=== PATIENT | male | born 1970 | race Caucasian/White ===

== ENCOUNTER 2017-06-25 18:31 | Observation (INO) | payer OTHER ==
[~2017-06-25] VITALS: Ht 182.9 cm; Wt 153.3 kg
[~2017-06-25 18:31] MED LIST: ATORVASTATIN CA40 MG PO; BACLOFEN 10MG T10 MG PO; CELEXA 20 MG TA20 M1; CELEXA 20 MG TA20 M1 PO; CELEXA 20 MG TA20 MG PO; CELEXA20 MG PO; CENTRUM SILVER1 EAC2 PO; FISH OIL 1,001000 M2 PO; FLEXERIL PO; GABAPENTIN800 M1 PO; HYDROCHLOROTHIA25 M2 PO; IBUPROFEN 200200 M1 PO; KEFLEX500 MG PO; KLOR-CON 1010 MEQ PO; LASIX 40 MG TAB40 M2 PO; LEXAPRO 10 MG T10 MG PO; LIDODERM 5%1 PATC1 TRANSDERM; LIORESAL 10 MG10 MG PO; LIPITOR 40 MG T40 M1 PO; LIPITOR20 MG PO; LISINOPRIL10 MG PO; NICOTINE TRANSD21 M1 TRANSDERM; NOHOMEMEDICATIONS; NORCO 5-325 TA1 EACH PO; PLAVIX 75 MG TA75 M1 PO; PLAVIX 75 MG TA75 MG PO; PRINIVIL5 MG PO; SILVADENE20 GM TP; TRAZODONE HCL50 MG PO; TYLENOL EX-STR500 M2 PO; WELLBUTRIN XL150 MG PO; ZESTORETIC 10-1 EACH PO
[2017-06-25 18:32] VITALS: BP 125/87
[2017-06-25] MEDS ORDERED: LOPRESSOR25 PO (18:42)
[2017-06-25] MEDS ORDERED: ATIVAN0.5 MG PO (18:43)
[2017-06-25] MEDS ORDERED: NORVASC5 MG PO (18:43)
[2017-06-25] MEDS ORDERED: ZOLOFT100 MG PO (18:44)
[2017-06-25] MEDS ORDERED: RESTORIL15 M1 PO (18:45)
[2017-06-25 18:48] LABS: ABSOLUTE BASOPHILS 0.1 thou/uL (0.0-0.2); ABSOLUTE EOSINOPHILS 0.3 thou/uL (0.0-0.7); ABSOLUTE LYMPHOCYTES 2.9 thou/uL (0.8-5.3); ABSOLUTE MONOCYTES 0.5 thou/uL (0.0-1.2); ABSOLUTE NEUTROPHILS 9.3 thou/uL (1.6-8.1); BASOPHILS 0.4 %; EOSINOPHILS 1.9 %; HEMATOCRIT 47.3 % (42.0-52.0); LYMPHOCYTES 22.1 %; MCHC 33.8 g/dL (28.0-37.0); MCV 85.7 fL (80.0-100.0); MONOCYTES 4.2 %; MPV 9.2 fl. (7.2-11.1); NUCLEATED RBCS 0 /100WBC; PLATELET COUNT* 310 thou/uL (150-400); POLYS 71.4 %; RBC 5.52 mil/uL (4.50-6.00); RDW-CV 14.1 % (10.5-14.5)
[2017-06-25 18:55] LABS: ANION GAP 10 mmol/L (7-16); BUN 14 mg/dL (7-18); CALCIUM 8.9 mg/dL (8.5-10.1); CHLORIDE 99 mmol/L (98-107); CO2 29 mmol/L (21-32); CREATININE 1.1 mg/dL (0.6-1.3); GLUCOSE 168 mg/dL (70-99); POTASSIUM 3.3 mmol/L (3.5-5.1); SODIUM 138 mmol/L (136-145)
[2017-06-25 19:12] LABS: ALBUMIN 3.8 g/dL (3.4-5.0); ALKALINE PHOSPHATASE 123 U/L (46-116); LIPASE 90 U/L (73-393); MAGNESIUM 1.9 mg/dL (1.8-2.4); NT-PRO BRAIN NAT PEPTIDE 35 pg/mL (<300); SGOT 24 U/L (15-37); SGPT 46 U/L (30-65); TOTAL BILIRUBIN 0.4 mg/dL (<0.1-1.0); TOTAL PROTEIN 7.8 g/dL (6.4-8.2); TROPONIN-I LEVEL <0.06 ng/mL (<0.06)
[2017-06-25 20:47] LABS: URINE BILIRUBIN NEGATIVE (Negative); URINE BLOOD NEGATIVE (Negative); URINE CLARITY CLEAR; URINE COLOR YELLOW; URINE GLUCOSE-RANDOM NEGATIVE (Negative); URINE KETONES NEGATIVE (Negative); URINE LEUKOCYTES-REFLEX NEGATIVE (Negative); URINE NITRITE-REFLEX NEGATIVE (Negative); URINE PROTEIN NEGATIVE (Negative); URINE SPECIFIC GRAVITY <= 1.005 (1.005-1.030); URINE UROBILINOGEN 0.2 E.U./dl (0.2-1.0)
[2017-06-25 20:53] LABS: AMP/METHAMP Negative (Negative); BARBITURATES Negative (Negative); BENZODIAZEPINES Negative (Negative); COCAINE Negative (Negative); METHADONE Negative (Negative); OPIATES Negative (Negative); PCP Negative (Negative); THC Negative (Negative)
[2017-06-25 21:25] VITALS: BP 127/79
[2017-06-25 21:44] VITALS: BP 123/95
[2017-06-26] VITALS: BP 127/79
--- NOTE | 2017-06-26 00:46 | NUR ---
ASSUMED CARE OF PT FROM ER AT 2134. PT IS ALERT AND ORIENTED. VSS. PERRLA. NO COMPLAINTS OF PAIN. PT DENIES CHEST PAIN AT THIS TIME. PT WAS NOTED TO HAVE A HEART MURMER. PT IS IN SINUS RYTHM ON THE TELEMETRY. PT IS RESTING COMFORTABLY IN BED. RESPIRATIONS ARE EEVEN AND NONLABORED. WILL CONTINUE TO MONITOR PT.
[2017-06-26 04:00] VITALS: BP 120/71
[2017-06-26 08:00] VITALS: BP 104/70
[2017-06-26 10:16] LABS: CHOLESTEROL 153 mg/dL (<200); HDL CHOLESTEROL 37 mg/dL (>40); LDL CHOLESTEROL 87 mg/dL (<100); TC:HDL 4.1 Ratio (Not establshd); TRIGLYCERIDE 147 mg/dL (<150); VLDL 29 mg/dL (<40)
[2017-06-26 10:17] LABS: SERUM ASSESSMENT Clear
[2017-06-26 11:21] VITALS: BP 112/76
--- NOTE | 2017-06-26 11:47 | NUR ---
CM SPOKE TO THE PATIENT TO DISCUSS HOME SITUATION, DISCHARGE PLANNNING, AND TO INFORM OF THE ROLE OF CM. PATIENT ALERT, ORIENTED, AND INDEPENDENT WITH ADL'S. PATIENT RESIDES AT HOME WITH SPOUSE. PATIENT USES A WHEELCHAIR AND WALKER FOR MOBILITY, AND ALSO USES A CPAP AT NIGHT. PATIENT INFORMS CM THAT HIS WILL BRING THE CPAP TO THE HOSPITAL TODAY FOR HIM TO USE. PATIENT HAS NO HX OF HH OR SNF AND PLANS TO RETURN HOME AT D/C. CM WILL REMAIN AVAILABLE TO ASSIST AND FOLLOW NEEDED.
[2017-06-26 15:46] VITALS: BP 118/69
--- NOTE | 2017-06-26 16:06 | 2DMMODE ---
[place] [address] 2 D/M-MODE ECHOCARDIOGRAM Name: CHLOÉ FINNEGAN Room: [address] ADM IN [facility]#: [id number] Admission: 06/25/17 Attend Phys: Rosa Javier Discharge: Date of : 74 Date of Service: 06/26/17 1605 Report #: [id number] THIS REPORT FOR: //name// APPROVED REPORT Study performed: 06/26/2017 10:16:16 EXAM: Comprehensive 2D, Doppler, and color-flow Echocardiogram Patient Location: In-Patient Room #: [facility] Status: routine BSA: 2.66 HR: 86 bpm BP: 104/70 mmHg Rhythm: NSR Other Information Technically limited study due to body habitus. Indications Murmur Chest Pain Echo Enhancing Agent Indication: Endocardial border delineation Agent(s) / Amount(s) Used: Optison 3 cc 2D Dimensions LVEF(%): 76.63 (>50%) IVSd: 13.53 (7-11mm) LVOT Diam: 19.32 (18-24mm) LVDd: 35.41 mm PWd: 13.03 (7-11mm) Ascending Ao: 29.44 (22-36mm) LVDs: 19.69 (25-40mm) Aortic Root: 30.64 mm Hicks's LVEF: 76.63 % Volumes Left Atrial Volume (Systole) LA ESV Index: 16.50 mL/m2 Aortic Valve AoV Peak Alo.: 4.08 m/s AO Peak Gr.: 66.66 mmHg LVOT Max P.61 mmHg AO Mean Gr.: 40.56 mmHg LVOT Mean P.71 [place] [address] 2 D/M-MODE ECHOCARDIOGRAM Name: CHLOÉ FINNEGAN Room: [address] IN .R.#: [id number] Admission: 06/25/17 Attend Phys: Rosa Javier Discharge: Date of : 74 Date of Service: 06/26/17 1605 Report #: [id number] LVOT Max V: 1.07 m/s AO V2 VTI: 78.98 cm LVOT Mean V: 0.77 m/s CROW (VTI): 0.82 cm2 LVOT V1 VTI: 22.00 cm Mitral Valve E/A Ratio: 0.91 MV Decel. Time: 261.06 ms MV E Max Alo.: 1.05 m/s MV PHT: 75.71 ms MVA (PHT): 2.91 cm2 TDI E/Lateral E': 8.08 E/Medial E': 13.13 Medial E' Alo.: 0.08 m/s Lateral E' Alo.: 0.13 m/s Pulmonary Valve PV Peak Alo.: 1.73 m/s PV Peak Gr.: 11.96 mmHg Left Ventricle The left ventricle is normal size. There is normal LV segmental wall motion. Mild concentric left ventricular hypertrophy. Left ventricular systolic function is normal. The left ventricular ejection fraction is within the normal range. LVEF is 60-65%. Grade I - abnormal relaxation pattern. Right Ventricle The right ventricle is normal size. The right ventricular systolic function is normal. Atria The left atrium size is normal. The right atrium size is normal. Aortic Valve Moderate aortic valve sclerosis. No aortic regurgitation is present. Severe aortic stenosis. Mitral Valve The mitral valve is normal in structure. There is no mitral valve regurgitation noted. No evidence of mitral valve stenosis. Tricuspid Valve The tricuspid valve is normal in structure. Unable to assess PA pressure. Trace [place] [address] 2 D/M-MODE ECHOCARDIOGRAM Name: CHLOÉ FINNEGAN Room: [address] IN [facility]#: [id number] Admission: 06/25/17 Attend Phys: Rosa Javier Discharge: Date of : 74 Date of Service: 06/26/17 1605 Report #: [id number] Pulmonic Valve The pulmonary valve is normal in structure. There is no pulmonic valvular regurgitation. Great Vessels The aortic root is normal in size. IVC is normal in size and collapses with >50% inspiration Pericardium There is no pericardial effusion. <Conclusion> LVEF is 60-65%. Grade I - abnormal relaxation pattern. Moderate aortic valve sclerosis. Severe aortic stenosis. There is no mitral valve regurgitation noted. Unable to assess PA pressure. Trace tricuspid regurgitation. There is no pulmonic valvular regurgitation. <ELECTRONICALLY SIGNED> By: Mark Harding MD, FACC 06/26/17 1605 1605 1605 Mark Harding MD, FACC /INF
--- NOTE | 2017-06-26 16:28 | EKG ---
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 : 1970 Requested By: Johny Llamas Order Number: [id number] MD: Chaitanya Grant Measurements Intervals [place] Rate: 104 P: 52 AK: 170 QRS: -21 QRSD: 111 T: 14 QT: 370 QTc: 487 Interpretive Statements Sinus tachycardia Probable left atrial enlargement Borderline left axis deviation Low voltage, extremity leads ST elev, probable normal early repol pattern Borderline prolonged QT interval Baseline wander in lead(s) I,III,aVL Compared to ECG 08/23/2016 13:35:57 Low QRS voltage now present ST (T wave) deviation now present Myocardial infarct finding no longer present Electronically Signed On 06-26-2017 16:28:33 CDT by Chaitanya Grant [email or web address] <ELECTRONICALLY SIGNED> By: Chaitanya Grant MD, [facility] 06/26/17 1628 1834 183 Chaitanya Grant MD, [facility] /EPI
--- NOTE | 2017-06-26 17:11 | CARDNUC ---
[place] [address] CARDIAC NUCLEAR IMAGING REPORT Name: CHLOÉ FINNEGAN Room: [address] IN [facility]#: [id number] Admission: 06/25/17 Attend Phys: Rosa Javier Discharge: Date of : 74 Date of Service: 06/26/17 1711 Report #: [id number] THIS REPORT FOR: //name// APPROVED REPORT Study performed: 06/25/2017 23:02:00 Exam: Nuclear Stress Test Indication: Chest pain Patient Location: In-Patient Room #: 206 Stress Tech: Nany Ayala Stress Nurse: Chayito Vences RN Ht: 6 ft 0 in Wt: 338 lbs BSA: 2.66 m2 BMI: 45.83 Medical History Medical History: Stroke/TIA Medications: plavix, metoprolol, amlodipine, atorvastatin Allergies: lisinopril, asa Cardiac Risk Factors: Age, Hyperlipidemia, , HTN, FHX of CAD Exercise History: Sedentary Meds Held (24 hrs): metoprolol, amlodipine Stress Test Details Stress Test: Pharmacologic stress testing performed using 0.4 mg of regadenoson per 5 mL given IV over 10 seconds. Reason for pharmacologic stress test: physical limitation. HR Resting HR: 86 bpm Max Heart Rate (APMHR): 175 bpm Max HR Achieved: 115 bpm Target HR (85% APMHR): 148 bpm % of APMHR: 65 Recovery HR: 96 bpm HR response to stress: Normal HR response to stress BP Resting BP: 105/79 mmHg Max BP: 114/84 mmHg BP response to stress: Normal blood pressure response to stress. ECG Resting ECG: Sinus Rhythm, [place] [address] CARDIAC NUCLEAR IMAGING REPORT Name: CHLOÉ FINNEGAN Room: [address] IN [facility]#: [id number] Admission: 06/25/17 Attend Phys: Rosa Javier Discharge: Date of : 74 Date of Service: 06/26/17 1711 Report #: [id number] Stress ECG: Sinus Rhythm ST Change: Nondiagnostic resting ST abnormalities Recovery ECG: Sinus Rhythm Recovery ST Change: None Clinical Reason for Termination: Completed protocol Stress Symptoms: None Exercise duration: 0 min sec Exercise capacity: 1.0 METs Stress ECG Conclusion equivocal for ischemia NM EXAM: Myocardial Perfusion REST/STRESS Imaging Protocol: Stress Tc-99m/Rest Tc-99m 2 days Pharmacologic Stress Pharmacologic stress test was performed by injecting Regadenoson 0.4 mg IV push followed by the intravenous injection of 37.9 mCi of Tc-99m Sestamibi. Time of stress injection: 1330 Date: 06/26/2017 Time of stress imagin Date: 06/26/2017 Administration Route: IV Administration Site: Left AC Heart Rate at time of stress injection: 115 bpm. Gated Stress SPECT was performed 40 minutes after stress injection. The images were gated to evaluate regional wall motion and calculate left ventricular ejection fraction. Prone imaging was performed. Study Quality Study: Good Artifact: Mild Increased GI uptake Lung Uptake: Normal Study Data Post stress, the left ventricular ejection was 69%.. Perfusion Normal perfusion on the stress images[place] [address] CARDIAC NUCLEAR IMAGING REPORT Name: CHLOÉ FINNEGAN Room: [address] IN ..#: [id number] Admission: 06/25/17 Attend Phys: Rosa Javier Discharge: Date of : 74 Date of Service: 06/26/171710 Report #: [id number] Nuclear Conclusion ECG Findings: positive for ischemia Clinical Findings: negative for ischemia Nuclear Findings: negative for ischemia Exercise Capacity: not assessed Left Ventricular Function: normal Risk Study: low Negative stress only nuclear stress test <Conclusion> equivocal for ischemia <ELECTRONICALLY SIGNED> By: Enoch Torres MD, [facility] 06/26/171710 10 10 Enoch Torres MD, FACC /INF
[2017-06-26 17:32] VITALS: BP 118/69
[2017-06-27 02:11] LABS: GLYCOHEMOGLOBIN (HGB A1C) 5.3 % (4.8-5.6)
== END 2017-06-26 18:15 | disposition home or self-care (01) ==
LOC: M.ERS 18:31 → M.2W 18:56 → M.TBA-ER 18:56 → M.2W 18:56
PROVIDERS: Emergency Medicine Emergency Medical Services; Personal Emergency Response Attendant; ADMIT Internal Medicine
DX: R07.9 Chest pain, unspecified (principal); I63.9 Cerebral infarction, unspecified; I10 Essential (primary) hypertension; E78.5 Hyperlipidemia, unspecified; Z87.891 Personal history of nicotine dependence

== ENCOUNTER 2017-07-11 10:35 | Outpatient (CLI) | payer OTHER ==
[~2017-07-11] VITALS: Ht 182.9 cm; Wt 154.2 kg
[~2017-07-11 10:35] MED LIST changes: +ATIVAN0.5 MG PO; +LOPRESSOR25 PO; +NORVASC5 MG PO; +RESTORIL15 M1 PO; +ZOLOFT100 MG PO
[2017-07-11 11:17] LABS: HEMATOCRIT 51.4 % (42.0-52.0); HEMOGLOBIN 17.3 gm/dL (14.0-18.0); MCHC 33.6 g/dL (28.0-37.0); MCV 86.1 fL (80.0-100.0); MPV 9.3 fl. (7.2-11.1); RBC 5.97 mil/uL (4.50-6.00); RDW-CV 14.1 % (10.5-14.5); WBC 12.3 thou/uL (4.0-11.0)
[2017-07-11 11:22] VITALS: BP 116/79
[2017-07-11 11:28] LABS: ANION GAP 8 mmol/L (7-16); BUN 12 mg/dL (7-18); CALCIUM 9.6 mg/dL (8.5-10.1); CHLORIDE 100 mmol/L (98-107); CO2 31 mmol/L (21-32); CREATININE 1.1 mg/dL (0.6-1.3); GLUCOSE 93 mg/dL (70-99); POTASSIUM 4.1 mmol/L (3.5-5.1); SODIUM 139 mmol/L (136-145)
[2017-07-11 11:29] LABS: APTT 30.8 Seconds (25.0-31.3); PROTIME 10.1 Seconds (9.20-11.50)
[2017-07-11 11:33] LABS: ALBUMIN 4.4 g/dL (3.4-5.0); ALKALINE PHOSPHATASE 136 U/L (46-116); CHOLESTEROL 167 mg/dL (<200); HDL CHOLESTEROL 39 mg/dL (>40); LDL CHOLESTEROL 94 mg/dL (<100); SGOT 28 U/L (15-37); SGPT 55 U/L (30-65); TC:HDL 4.3 Ratio (Not establshd); TOTAL BILIRUBIN 0.6 mg/dL (<0.1-1.0); TOTAL PROTEIN 8.8 g/dL (6.4-8.2); TRIGLYCERIDE 171 mg/dL (<150); VLDL 34 mg/dL (<40)
[2017-07-11 11:34] LABS: SERUM ASSESSMENT Clear
[2017-07-11 14:48] VITALS: BP 120/86
[2017-07-11 15:20] VITALS: BP 125/77
--- NOTE | 2017-07-11 15:21 | EKG ---
[place] [address] ELECTROCARDIOGRAM REPORT Name: CHLOÉ FINNEGAN Room: [address]#: [id number] Admission: 07/11/17 Attend Phys: Enoch Torres MD, Discharge: Date of : 74 Report #: [id number] THIS REPORT FOR: //name// [facility] Test Date: 2017-07-11 Test Time: 11:17:30 Pat Name: CHLOÉ FINNEGAN Department: Room: Gender: Potato Peeler: [facility] : 1970 Requested By: Enoch Torres Order Number: [id number] MD: Enoch Torres Measurements Intervals [place] Rate: 74 P: 18 DC: 219 QRS: -7 QRSD: 89 T: 43 QT: 389 QTc: 432 Interpretive Statements Sinus rhythm Prolonged DC interval Probable left atrial enlargement Compared to ECG 06/25/2017 18:34:24 First degree AV block now present Sinus tachycardia no longer present ST (T wave) deviation no longer present Electronically Signed On 07-11-2017 15:20:51 CDT by Enoch Torres [email or web address] <ELECTRONICALLY SIGNED> By: Enoch Torres MD, FACC 07/11/17 1520 1117 1117 nEoch Torres MD, [facility] /EPI
--- NOTE | 2017-07-11 15:35 | CARD ---
[address] [address] CARDIAC CATH REPORT Name: CHLOÉ FINNEGAN Room: [address] [place]#: [id number] Admission: 07/11/17 Attend Phys: Enoch Torres MD, Discharge: Date of : 74 Report #: [id number] THIS REPORT FOR: //name// APPROVED REPORT Study performed: 07/11/2017 12:59:52 Patient Details Patient Status: Out-Patient Room #: The patient is a 47 year-old male Event Personnel Enoch Torres Supply Coordinator, Ruthie Arcos RN Ground Support Equipment Fitter, Carmine Mcleod (R) Monitor, Shirlene Cunha Scrub Procedures Performed Coronary Angiography Only, Supravalvular Aortography Injection Indication Dyspnea, Aortic stenosis Risk Factors Hypercholesterolemia, Hypertension Procedure Narrative The patient was brought electively to the Cardiac Catheterization Laboratory and was prepped and draped in a sterile manner. The right femoral was infiltrated with 1% Lidocaine subcutaneous anesthesia. A [place] 6 FR sheath was inserted into the Right Femoral Artery. Coronary angiography was performed using coronary diagnostic catheters. The right coronary system was accessed and visualized with a Diagnostic 3DRC 6fr catheter. The left coronary system was accessed and visualized with a Diagnostic JL 4 catheter. An aortogram of the ascending aorta was performed. Pre-demployment femoral angiogram was performed . Closure device was deployed with a Fr MynxGrip 6/7F. The patient tolerated the procedure well and there were no complications associated with the procedure. There was no hematoma. Intraoperative Conscious Sedation Fentanyl mcg Dose: 1676 mGy Contrast Type and Amount: Visipaque 135 [place] [address] CARDIAC CATH REPORT Name: CHLOÉ FINNEGAN [id number] Admission: 07/11/17 Attend Phys: Enoch Torres MD, Discharge: Date of : 74 Report #: [id number] Coronary Angiography The patient's coronary anatomy is co- dominant. Diagnostic Cath Left Main 0% narrowing LAD 20% mid LAD narrowing Circumflex Codominant vessel with 0% narrowing Right Coronary Codominant vessel with 30% mid vessel narrowing Left Ventriculography Left Ventriculography was not performed. Ascending aortography demonstrated trace of aortic insufficiency calcified aortic valve with reduced mobility and no significant dilatation of the aortic root Hemodynamics The aortic pressure is 112/75 mmHg with a mean of 93 mmHg. Conclusion #1 mild coronary artery disease characterized by the following: A 20% mid LAD narrowing B 30% narrowing of the midportion of the codominant right coronary artery C normal left main and codominant circumflex coronary arteries #2 normal systemic pressure #3 trace of aortic insufficiency on ascending aortography with a calcified aortic valve with reduced mobility; there is no significant dilatation of the aortic root Recommendations Aggressive Medical Therapy Diagnostic Cath Approved by: Enoch Torres MD Date/Time: 07/11/17 at 1534 hrs. <ELECTRONICALLY SIGNED> By: Enoch Torres MD, [facility] 07/11/17 1534 1534 1534Enoch Torres MD, [facility] /INF
[2017-07-11 15:52] VITALS: BP 97/67
[2017-07-11 16:25] VITALS: BP 122/74
[2017-07-11 17:49] VITALS: BP 110/73
== END 2017-07-11 15:34 | disposition home or self-care (01) ==
LOC: M.CL 10:35 → M.TBA-CV 10:35 → M.CL 12:00 → M.TBA-CV 14:33 → M.CL 14:33
PROVIDERS: Internal Medicine
DX: I25.10 Atherosclerotic heart disease of native coronary artery without angina pectoris (principal); I10 Essential (primary) hypertension; E78.00 Pure hypercholesterolemia, unspecified; I35.0 Nonrheumatic aortic (valve) stenosis; G47.33 Obstructive sleep apnea (adult) (pediatric); Z86.73 Personal history of transient ischemic attack (TIA), and cerebral infarction without residual deficits; Z88.8 Allergy status to other drugs, medicaments and biological substances; Z79.899 Other long term (current) drug therapy; Z98.890 Other specified postprocedural states; Z79.01 Long term (current) use of anticoagulants

== ENCOUNTER 2017-10-19 00:10 | Emergency (ER) | payer OTHER ==
[~2017-10-19] VITALS: Ht 182.9 cm; Wt 106.6 kg
[2017-10-19 01:00] LABS: ABSOLUTE BASOPHILS 0.1 thou/uL (0.0-0.2); ABSOLUTE EOSINOPHILS 0.2 thou/uL (0.0-0.7); ABSOLUTE LYMPHOCYTES 3.7 thou/uL (0.8-5.3); ABSOLUTE MONOCYTES 0.9 thou/uL (0.0-1.2); ABSOLUTE NEUTROPHILS 8.4 thou/uL (1.6-8.1); BASOPHILS 0.6 %; EOSINOPHILS 1.7 %; HEMATOCRIT 45.8 % (42.0-52.0); HEMOGLOBIN 15.3 gm/dL (14.0-18.0); LYMPHOCYTES 27.7 %; MCH 27.8 pg (26.0-34.0); MCHC 33.4 g/dL (28.0-37.0); MCV 83.1 fL (80.0-100.0); MONOCYTES 6.5 %; MPV 8.4 fl. (7.2-11.1); NUCLEATED RBCS 0 /100WBC; PLATELET COUNT* 384 thou/uL (150-400); POLYS 63.5 %; RBC 5.52 mil/uL (4.50-6.00); WBC 13.2 thou/uL (4.0-11.0)
[2017-10-19 01:12] LABS: APTT 29.4 Seconds (25.0-31.3); INR 1.1; PROTIME 10.3 Seconds (9.20-11.50)
[2017-10-19 01:30] LABS: ANION GAP 9 mmol/L (7-16); BUN 15 mg/dL (7-18); CALCIUM 8.9 mg/dL (8.5-10.1); CHLORIDE 101 mmol/L (98-107); CO2 28 mmol/L (21-32); GLUCOSE 108 mg/dL (70-99); POTASSIUM 3.9 mmol/L (3.5-5.1); SODIUM 138 mmol/L (136-145)
[2017-10-19 01:37] LABS: ALBUMIN 3.4 g/dL (3.4-5.0); ALKALINE PHOSPHATASE 113 U/L (46-116); LIPASE 109 U/L (73-393); SGOT 16 U/L (15-37); SGPT 29 U/L (30-65); TOTAL BILIRUBIN 0.4 mg/dL (<0.1-1.0); TOTAL PROTEIN 7.6 g/dL (6.4-8.2); TROPONIN-I LEVEL <0.06 ng/mL (<0.06)
[2017-10-19] MEDS ORDERED: PREVACID15 MG PO (03:23)
[2017-10-19] MEDS ORDERED: CARAFATE 1 GM TA1 GM PO (03:23)
[2017-10-19 03:32] VITALS: BP 131/77
--- NOTE | 2017-10-19 11:12 | EKG ---
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 : 1970 Requested By: Ana Luisa Woodall Order Number: [id number] MD: Cristopher Covarrubias Measurements Intervals [place] Rate: 94 P: 79 MN: 198 QRS: -2 QRSD: 104 T: 59 QT: 375 QTc: 469 Interpretive Statements Sinus rhythm Borderline prolonged MN interval Biatrial enlargement septal infarct, age indeterminate RSR' in V1 Compared to ECG 07/11/2017 11:17:30 no change Electronically Signed On 10-19-2017 11:12:25 CDT by Cristopher Covarrubias [email or web address] <ELECTRONICALLY SIGNED> By: Cristopher Covarrubias MD, [facility] 10/19/17 1112 0015 0015 Cristopher Covarrubias MD, [facility] /EPI
== END 2017-10-19 03:33 | disposition home or self-care (01) ==
LOC: M.ERS 00:10
PROVIDERS: Personal Emergency Response Attendant
DX: K21.9 Gastro-esophageal reflux disease without esophagitis (principal); Z88.6 Allergy status to analgesic agent; Z88.8 Allergy status to other drugs, medicaments and biological substances; I10 Essential (primary) hypertension; G47.33 Obstructive sleep apnea (adult) (pediatric)

== ENCOUNTER 2018-03-02 09:32 | Emergency (ER) | payer OTHER ==
[~2018-03-02] VITALS: Ht 182.9 cm; Wt 163.3 kg
[~2018-03-02 09:32] MED LIST changes: +CARAFATE 1 GM TA1 GM PO; +PREVACID15 MG PO
[2018-03-02 10:05] LABS: ABSOLUTE BASOPHILS 0.1 thou/uL (0.0-0.2); ABSOLUTE EOSINOPHILS 0.2 thou/uL (0.0-0.7); ABSOLUTE LYMPHOCYTES 1.5 thou/uL (0.8-5.3); ABSOLUTE MONOCYTES 0.4 thou/uL (0.0-1.2); ABSOLUTE NEUTROPHILS 7.1 thou/uL (1.6-8.1); BASOPHILS 1.1 %; EOSINOPHILS 2.6 %; HEMATOCRIT 47.6 % (42.0-52.0); HEMOGLOBIN 16.1 gm/dL (14.0-18.0); LYMPHOCYTES 15.9 %; MCH 29.9 pg (26.0-34.0); MCHC 33.8 g/dL (28.0-37.0); MCV 88.6 fL (80.0-100.0); MONOCYTES 4.5 %; MPV 8.6 fl. (7.2-11.1); NUCLEATED RBCS 0 /100WBC; PLATELET COUNT* 284 thou/uL (150-400); POLYS 75.9 %; RBC 5.37 mil/uL (4.50-6.00); WBC 9.4 thou/uL (4.0-11.0)
[2018-03-02 10:17] LABS: ANION GAP 11 mmol/L (7-16); APTT 27.8 Seconds (25.0-31.3); BUN 10 mg/dL (7-18); CALCIUM 8.7 mg/dL (8.5-10.1); CHLORIDE 102 mmol/L (98-107); CO2 27 mmol/L (21-32); GLUCOSE 168 mg/dL (70-99); SODIUM 140 mmol/L (136-145)
[2018-03-02 10:36] LABS: ALBUMIN 3.4 g/dL (3.4-5.0); ALKALINE PHOSPHATASE 113 U/L (46-116); LIPASE 110 U/L (73-393); MAGNESIUM 1.9 mg/dL (1.8-2.4); NT-PRO BRAIN NAT PEPTIDE 51 pg/mL (<300); SGOT 34 U/L (15-37); SGPT 49 U/L (30-65); TOTAL BILIRUBIN 0.2 mg/dL (<0.1-1.0); TOTAL PROTEIN 7.6 g/dL (6.4-8.2); TROPONIN-I LEVEL <0.06 ng/mL (<0.06)
[2018-03-02 11:06] VITALS: BP 111/69
--- NOTE | 2018-03-03 11:17 | EKG ---
[place] [address] ELECTROCARDIOGRAM REPORT Name: CHLOÉ FINNEGAN Room: [facility]#: [id number] Admission: 03/02/18 Attend Phys: Discharge: 03/02/18 Date of : 74 Report #: [id number] THIS REPORT FOR: //name// 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: Joanie BARBER : 1970 Requested By: Marcus Moreira Order Number: [id number] MD: Enoch Torres Measurements Intervals [place] Rate: 82 P: 77 MS: 200 QRS: -8 QRSD: 121 T: 50 QT: 389 QTc: 455 Interpretive Statements Sinus rhythm Probable left atrial enlargement Nonspecific intraventricular conduction delay Possible anteroseptal infarct, old Minimal ST elevation, lateral leads Artifact in lead(s) I,III,aVR,aVL,aVF,V2 Compared to ECG 10/19/2017 00:15:01 Intraventricular conduction delay now present ST (T wave) deviation now present Myocardial infarct finding still present Electronically Signed On 03-03-2018 11:17:46 ELECTRICAL SYSTEMS DESIGN ENGINEER by Enoch Torres [email or web address] <ELECTRONICALLY SIGNED> By: Enoch Torres MD, [facility] 03/03/18 1117 Enoch Torres MD, [facility] /EPI
== END 2018-03-02 11:06 | disposition home or self-care (01) ==
LOC: M.ERS 09:32
PROVIDERS: Emergency Medicine
DX: R07.89 Other chest pain (principal); I10 Essential (primary) hypertension; G47.33 Obstructive sleep apnea (adult) (pediatric); Z88.6 Allergy status to analgesic agent; Z88.8 Allergy status to other drugs, medicaments and biological substances; Z86.73 Personal history of transient ischemic attack (TIA), and cerebral infarction without residual deficits

== ENCOUNTER → 2018-06-11 | Outpatient (CLI) | payer OTHER ==
--- NOTE | 2018-06-11 11:04 | 2DMMODE ---
[place] [address] 2 D/M-MODE ECHOCARDIOGRAM Name: CHLOÉ FINNEGAN Room: [facility]#: [id number] Admission: 06/11/18 Attend Phys: Chaitanya Grant, Discharge: Date of : 74 Date of Service: 06/11/18 1104 Report #: [id number] THIS REPORT FOR: //name// APPROVED REPORT Study performed: 06/11/2018 07:57:30 EXAM: Comprehensive 2D, Doppler, and color-flow Echocardiogram Patient Location: Out-Patient BSA: 2.71 HR: 77 bpm BP: 104/70 mmHg Other Information Study Quality: Fair Indications Aortic Valve Disease 2D Dimensions IVSd: 11.19 (7-11mm) LVOT Diam: 20.68 (18-24mm) LVDd: 49.01 mm PWd: 9.78 (7-11mm) Ascending Ao: 31.12 (22-36mm) LVDs: 24.79 (25-40mm) Aortic Root: 22.43 mm Volumes Left Atrial Volume (Systole) LA ESV Index: 15.00 mL/m2 Aortic Valve AoV Peak Alo.: 1.42 m/s AO Peak Gr.: 8.04 mmHg LVOT Max P.73 mmHg AO Mean Gr.: 4.34 mmHg LVOT Mean P.41 mmHg LVOT Max V: 0.83 m/s AO V2 VTI: 27.57 cm LVOT Mean V: 0.55 m/s CROW (VTI): 2.26 cm2 LVOT V1 VTI: 18.56 cm Mitral Valve E/A Ratio: 1.17 MV Decel. Time: 292.14 ms MV E Max Alo.: 0.92 m/s MV PHT: 84.72 ms MVA (PHT): 2.60 [place]2 [place] [address] 2 D/M-MODE ECHOCARDIOGRAM Name: CHLOÉ FINNEGAN Room: [facility]#: [id number] Admission: 06/11/18 Attend Phys: Chaitanya Grant, Discharge: Date of : 74 Date of Service: 06/11/18 1104 Report #: [id number] TDI E/Lateral E': 10.22 E/Medial E': 11.50 Medial E' Alo.: 0.08 m/s Lateral E' Alo.: 0.09 m/s Pulmonary Valve PV Peak Alo.: 1.32 m/s PV Peak Gr.: 7.00 mmHg Left Ventricle The left ventricle is normal size. There is normal LV segmental wall motion. There is normal left ventricular wall thickness. Left ventricular systolic function is normal. LVEF is 60-65%. Grade I - abnormal relaxation pattern. Right Ventricle The right ventricle is normal size. The right ventricular systolic function is normal. Atria The left atrium size is normal. The right atrium size is normal. Aortic Valve Bioprosthetic aortic valve is present. No aortic regurgitation is present. There is no aortic valvular stenosis. Mitral Valve The mitral valve is normal in structure. Mild mitral regurgitation. No evidence of mitral valve stenosis. Tricuspid Valve The tricuspid valve is normal in structure. There is no tricuspid valve regurgitation noted. Pulmonic Valve The pulmonary valve is normal in structure. Mild pulmonic regurgitation. Great Vessels The aortic root is normal in size. IVC is normal in size and collapses >50% with inspiration. Pericardium There [place] [address] 2 D/M-MODE ECHOCARDIOGRAM Name: [facility]LOÉ FINNEGAN [id number] Admission: 06/11/18 Attend Phys: Chaitanya Grant, Discharge: Date of : 74 Date of Service: 06/11/18 1104 Report #: [id number] <Conclusion> The left ventricle is normal size. There is normal left ventricular wall thickness. Left ventricular systolic function is normal. LVEF is 60-65%. Grade I - abnormal relaxation pattern. Bioprosthetic aortic valve is present. No aortic regurgitation is present. There is no aortic valvular stenosis. IVC is normal in size and collapses >50% with inspiration. <ELECTRONICALLY SIGNED> By: Ghassan López MD, FACC 06/11/18 1104 1104 1104 Ghassan López MD, FACC /INF
== END ==
LOC: M.CRD 06-04 11:00
DX: I08.8 Other rheumatic multiple valve diseases (principal); Z95.2 Presence of prosthetic heart valve; Z88.8 Allergy status to other drugs, medicaments and biological substances